=== PATIENT | male | born 1980 | race Caucasian/White ===

== ENCOUNTER 2020-03-05 15:46 | Emergency (ER) | payer BC ==
[~2020-03-05] VITALS: Ht 177.8 cm; Wt 77.7 kg
[2020-03-05 16:07] VITALS: BP 120/82
== END 2020-03-05 16:26 | disposition home or self-care (01) ==
LOC: ER 15:48
DX: U07.1 COVID-19 (principal)
CPT/HCPCS: 36415; 87635; 99283; C9803